=== PATIENT | female | born 1935 | race Caucasian/White ===

== ENCOUNTER 2019-06-24 12:00 | Emergency (ER) | payer OTHER, BC ==
--- NOTE | 2019-06-24 12:17 | PDOC ---
History of Present Illness - General History Source: Patient Exam Limitations: No Limitations - History of Present Illness Travel History: No Initial Comments: 06/24/19 12:52 84y F hx of AVR on eliquis, htn, cva, hl, spinal stenosis, breast ca, bladder ca presents with complaint of difficulty urinating. Patient states that she has been having difficulty urinating for the last 3 days.. Patient notes that she had some blood in her urine (reddish color, but no clots) on Monday she also has had intermittent left sided lower abdominal pain (No pain today). Patient also notes that she has had minimal urine for the last several days. Patient states she usually has minimal urine, she does pee approximately 3 times in the day but it is very low volume, She States this is normal for her she states she eats 3 small meals a day and drinks a coffee in the morning and an iced tea at dinner without any other fluid intake. The patient denies any current fever, chills, nausea, vomiting, chest pain, shortness of breath, diaphoresis, back pain, current abdominal pain, dysuria, diarrhea. Patient has seen urology in the past for hematuria and had a negative work-up. ROS Constitutional - no reported Fever, Chills, HEENT: no reported vision changes, sore throat Respiratory: no reported cough, sob, hemoptysis Cardiac: no reported chest pain, palpitations, light headedness, leg swelling Abd/GI: no reported abd pain, nausea, vomiting, blood per rectum, melena, diarrhea : +decreased urination reported dysuria, discharge Musculskelatal - no reported back pain, joint swelling skin - no reported bruising, erythema, rash neurological: no reported headache, numbness, focal weakness, tingling, ataxia, hematologic: no reported easy bruising, easy bleeding Exam GENERAL: The patient is awake, alert, and fully oriented, Nontoxic - in no acute distress. HEAD: Normocephalic, atraumatic. EYES: extraocular movements intact, sclera anicteric, conjunctiva clear. ENT: Normal voice, dry mucous membranes. NECK: Normal range of motion, supple LUNGS: Breath sounds equal, clear to auscultation bilaterally. No wheezes, no rhonchi, no rales. HEART: Regular rate and rhythm, normal S1 and S2 without murmur, rub or gallop. ABDOMEN: Soft, nontender, No guarding, no rebound. No CVA tenderness EXTREMITIES: Normal range of motion, no edema. NEUROLOGICAL: No facial assymetry, Normal speech, PSYCH: Normal mood, normal affect. SKIN: Warm, Dry, normal turgor, Differential for the patient's symptoms includes possible dehydration, UTI, consider possible kidney stones. We will send a UA, urine culture will obtain blood work we will give the patient fluids hydration Will reassess <Jesus Harley - Last Filed: 06/24/19 19:05> <Watson Mcclendon - Last Filed: 06/24/19 20:19> - General Chief Complaint: Urinary Problem Stated Complaint: DIFFICULTY URINATIN, URINARY SX Time Seen by Provider: 06/24/19 12:07 Past History - Past Medical History Cancer: Yes (breasst, bladder, lung) Cardiac Disorders: Yes (afib, aortic valve replacement) CVA: Yes COPD: No HTN: Yes Hypercholesterolemia: Yes Other medical history: spinal stenosis - Surgical History Cardiac Surgery: Yes (aortic valve replacement) - Psycho Social/Smoking Cessation Hx Smoking History: Former smoker Have you smoked in the past 12 months: No Information on smoking cessation initiated: No <Jesus Harley - Last Filed: 06/24/19 19:05> <Watson Mcclendon - Last Filed: 06/24/19 20:19> - Past Medical History Allergies/Adverse Reactions: Allergies Allergy/AdvReac Type Severity Reaction Status Date / Time No Known Allergies Allergy Verified 06/24/19 12:05 Home Medications: Ambulatory Orders Apixaban [Eliquis] 5 mg PO BID 06/24/19 Aspirin [Aspirin EC] 81 mg PO DAILY 06/24/19 Atorvastatin Ca [Lipitor] 80 mg PO HS 06/24/19 Clonazepam 0.5 mg PO HS 06/24/19 Metoprolol Succinate [Toprol Xl] 50 mg PO BID 06/24/19 Oxycodone HCl/Acetaminophen [Percocet 5-325 mg Tablet] 1 tab PO Q6H PRN #8 tab MDD 4 tabs 06/24/19 Tramadol HCl 50 mg PO DAILY PRN 06/24/19 *Physical Exam - Vital Signs Last Vital Signs Temp Pulse Resp BP Pulse Ox 98.3 F 96 H 18 117/79 99 06/24/19 12:00 06/24/19 12:00 06/24/19 12:00 06/24/19 12:00 06/24/19 12:00 <Jesus Harley - Last Filed: 06/24/19 19:05> - Vital Signs Last Vital Signs Temp Pulse Resp BP Pulse Ox 97.9 F 88 16 140/85 96 06/24/19 19:00 06/24/19 19:00 06/24/19 19:00 06/24/19 19:00 06/24/19 19:00 <Watson Mcclendon - Last Filed: 06/24/19 20:19> ED Treatment Course - LABORATORY CBC & Chemistry Diagram: 06/24/19 12:53 06/24/19 12:53 <Jesus Harley - Last Filed: 06/24/19 19:05> - LABORATORY CBC & Chemistry Diagram: 06/24/19 12:53 06/24/19 12:53 - ADDITIONAL ORDERS Additional order review: Laboratory Results 06/24/19 06/24/19 13:31 12:53 Sodium 138 Potassium 3.6 Chloride 104 Carbon Dioxide 24 Anion Gap 10 BUN 12.0 Creatinine 0.8 Est GFR (CKD-EPI)AfAm 79.57 Est GFR (CKD-EPI)NonAf 68.66 Random Glucose 114 H Calcium 9.1 Total Bilirubin 1.4 H AST 29 ALT 15 Alkaline Phosphatase 81 Total Protein 6.5 Albumin 3.9 Urine Color Yellow Urine Appearance Slightly Urine pH 5.5 Urine Protein 2+ H Urine Glucose (UA) Negative Urine Ketones Negative Urine Blood 3+ H Urine Nitrite Negative Urine Bilirubin Negative Urine Urobilinogen 0.2 Ur Leukocyte Esterase Negative Urine RBC 60-80 Urine WBC 2-5 Ur Transition Epith Cell Few Amorphous Urates 3+ 06/24/19 12:53 RBC 3.83 MCV 89.3 MCHC 32.6 RDW 16.6 H MPV 10.3 Neutrophils % 57.6 Lymphocytes % 29.6 Monocytes % 11.0 H Eosinophils % 1.5 Basophils % 0.3 - Medications Given in the ED: ED Medications Discontinued Medications Generic Name Dose Route Start Last Admin Trade Name Freq PRN Reason Stop Dose Admin Acetaminophen 650 mg 06/24/19 14:53 06/24/19 15:00 Tylenol - PO 06/24/19 14:54 Not Given ONCE ONE Acetaminophen 650 mg 06/24/19 18:59 06/24/19 19:45 Tylenol - PO 06/24/19 19:00 650 mg ONCE ONE Administration Sodium Chloride 1,000 mls @ 1,000 mls/hr 06/24/19 12:51 06/24/19 12:45 Normal Saline - IV 06/24/19 13:50 1,000 mls/hr .Q1H ONE Administration Metoclopramide HCl 10 mg 06/24/19 18:59 06/24/19 19:10 Reglan Injection - IVPUSH 06/24/19 19:00 10 mg ONCE ONE Administration Morphine Sulfate 2 mg 06/24/19 15:00 06/24/19 15:13 Morphine Injection - IVPUSH 06/24/19 15:01 2 mg ONCE ONE Administration Morphine Sulfate 2 mg 06/24/19 19:51 06/24/19 20:00 Morphine Injection - IVPUSH 06/24/19 19:52 2 mg ONCE ONE Administration <Watson Mcclendon - Last Filed: 06/24/19 20:19> Medical Decision Making - Medical Decision Making 06/24/19 14:54 pts labs reviewed UA noted for 3+ blood but does not apepar infectious pt now has L flank pain - CT down - will obtain US to eval for L sided hydronephrosios will give tylenol for pain 06/24/19 18:58 US noted for hydro will obtain CT to eval for ston vs other cause of hydro as pt still in pain <Jesus Harley - Last Filed: 06/24/19 19:05> - Medical Decision Making 06/24/19 20:12 5mm distal ureteral stone shared decision making re: dispo and analgesia already on NSAID (and on ac) tramadol for spinal stenosis will add Percocet will fu with in AM <Watson Mcclendon - Last Filed: 06/24/19 20:19> Discharge - Admission No <Jesus Harley - Last Filed: 06/24/19 19:05> - Discharge Information Problems reviewed: Yes <Watson Mcclendon - Last Filed: 06/24/19 20:19> - Discharge Information Clinical Impression/Diagnosis: Kidney stone Condition: Stable Disposition: HOME - Patient Discharge Instructions Patient Printed Discharge Instructions: Kidney Stones -- Adult Additional Instructions: Please follow up with your urologist tomorrow
[2019-06-24] MEDS ORDERED: SODIUM CHLORIDE 1,000 ML IV ONE (12:51)
[2019-06-24 13:23] LABS: BASO % 0.3 % (0-2.0); EOS % 1.5 % (0-4.5); HEMATOCRIT 34.2 % (32.4-45.2); HEMOGLOBIN 11.1 GM/dl (10.7-15.3); LYMPH % 29.6 % (8-40); MCH 29.1 pg (25.7-33.7); MCHC 32.6 g/dl (32.0-36.0); MEAN CELL VOLUME 89.3 fl (80-96); MEAN PLT VOLUME 10.3 fl (7.5-11.1); NEUT % 57.6 % (42.8-82.8); PLATELET COUNT 154 K/MM3 (134-434); RBC 3.83 M/mm3 (3.60-5.2); RDW 16.6 % (11.6-15.6); WHITE BLOOD COUNT 4.5 K/mm3 (4.0-10.8)
[2019-06-24 13:31] LABS: ALBUMIN 3.9 g/dl (3.4-5.0); BILIRUBIN,TOTAL 1.4 mg/dl (0.2-1); CALCIUM 9.1 mg/dl (8.5-10); CREATININE 0.8 mg/dl (0.55-1.3); POTASSIUM 3.6 mmol/L (3.5-5.1); TOT PROT 6.5 g/dl (6.4-8.2)
[2019-06-24 14:39] LABS: AMORP URATES 3+ /hpf (NONE SEEN); EPITHELIAL CELLS FEW /hpf
[2019-06-24] MEDS ORDERED: ACETAMINOPHEN 325 MG TABLET (FP) PO ONE ×2 (14:53→18:59)
[2019-06-24] MEDS ORDERED: ACETAMINOPHEN 325 MG TABLET (FP) ONE ×2 (14:56→19:00)
[2019-06-24] MEDS ORDERED: morphine CARPU-JECT 2 MG/1 ML DISP.SYRIN IVPUSH ONE ×2 (15:00→19:51)
[2019-06-24] MEDS ORDERED: morphine SULFATE 4 MG/ML VIAL ONE ×2 (15:09→19:57)
[2019-06-24] MEDS ORDERED: METOCLOPRAMIDE HCL INJECTION 10 MG/2 ML VIAL IVPUSH ONE (18:59)
[2019-06-24] MEDS ORDERED: METOCLOPRAMIDE HCL INJECTION 10 MG/2 ML VIAL ONE (19:00)
[2019-06-24 20:30] VITALS: BP 129/74; PULSE 84; TEMP 97.8
== END 2019-06-24 20:39 | disposition home or self-care (01) ==
LOC: FER 12:00
PROC: 3E033GC Introduction of Other Therapeutic Substance into Peripheral Vein, Percutaneous Approach (ICD-10-PCS; principal; 2019-06-24)
PROC: 3E033NZ Introduction of Analgesics, Hypnotics, Sedatives into Peripheral Vein, Percutaneous Approach (ICD-10-PCS; 2019-06-24)
PROC: 3E0337Z Introduction of Electrolytic and Water Balance Substance into Peripheral Vein, Percutaneous Approach (ICD-10-PCS; 2019-06-24)
DX: N20.0 Calculus of kidney (principal); I48.91 Unspecified atrial fibrillation; E78.00 Pure hypercholesterolemia, unspecified; I10 Essential (primary) hypertension
CPT/HCPCS: 36415; 74176-TC; 76775-TC; 80053; 81003; 81015; 85025; 87086; 96361; 96374; 96375; 96376; 99283-25; J7030